=== PATIENT | female | born 1950 | race Caucasian/White ===

== ENCOUNTER → 2017-07-16 13:17 | Outpatient (CLI) | payer MEDICARE, OTHER, SELFPAY ==
--- NOTE | 2017-07-16 13:20 | RAD_ITS ---
STUDY: SWALLOWING STUDY REASON FOR EXAM: Female, 67 years old. Dysphasia. Parkinson's disease. TECHNIQUE: The examination was performed with Speech Pathology in attendance. Under fluoroscopic observation, the patient ingested thin barium, thick barium, barium pudding, and barium coated cracker. FLUOROSCOPY TIME: 2:14 minutes/seconds. 1831 spot images were obtained. RADIOLOGIST INVOLVEMENT: Radiologist was present and providing direct supervision. COMPARISON: None. FINDINGS: The following was observed during swallowing of the various mixtures of barium: Thin Barium: There was no evidence of aspiration or laryngeal penetration. Barium Pudding: There was no evidence of aspiration or laryngeal penetration. Barium Coated Cracker: There was no evidence of aspiration or laryngeal penetration. RAD/Swallowing Function w/Video IMPRESSION: Normal tailored barium swallow study. No evidence of increased risk for aspiration. The swallow study findings were discussed with the patient by the speech pathologist at the conclusion of the examination. Please see speech pathology report for more information and recommendations. Electronically Signed: Sukhdeep Perez MD at 14:40 EST Tel [phone], Service support ,
--- NOTE | 2017-07-16 13:30 | SP.MBSS_ITS ---
PRIMARY / SECONDARY DIAGNOSIS: dysphagia (R13.12) REFERRING PHYSICIAN: Dr. Ronak Mcguire MD CURRENT DIET: regular textures, thin liquids DENTITION: WFL Missing Teeth MENTAL STATUS: mild RESPIRATORY STATUS: O2 via room air PREVIOUS MODIFIED BARIUM SWALLOW STUDY: none REASON FOR REFERRAL: Patient is a 67 year old female referred for a modified barium swallow (MBS) study to objectively assess the Patients oropharyngeal swallow function under fluoroscopy secondary to the diagnosis of Parkinsons disease. Patient known to this clinician from prior [facility] and acute care admissions, currently receiving skilled speech-language intervention as outpatient at [facility]. Patient reporting reported coughing on thin liquids, reported numbness intermittently in cheeks. 06/03/2017 MRI revealed no MRI evidence of acute or subacute ischemic infarct, no MRI evidence of intracranial mass or acute intracranial abnormality; interval cystic change of the previous acute ischemic infarct in the left pontine tegmentum when compared to 03/01/2017. MEDICAL HISTORY: Parkinson's disease with dementia, left pontine stroke (February 2017), gastroesophageal reflux disease, hypertension, hyperlipidemia STUDY FINDINGS: Patient participated in a Modified Barium Swallow (MBS) study on 07/16/2017. Dr. Perez was the radiologist present for this evaluation. This study was recorded in the lateral view and images were sent to PACs for storage. The following consistencies were presented to this patient for analysis of oropharyngeal swallow function: thin liquids, pudding, and a regular textured, [place]ala [place] cookie. Results of the MBS are as follows: PENETRATION / ASPIRATION SCALE (MAURICIO): 1 = does not enter airway 2 = enters airway/above vocal folds/ejected 3 = enters airway/above vocal folds/not ejected 4 = enters airway/contacts vocal folds/ejected 5 = enters airway/contacts vocal folds/not ejected 6 = enters airway/below vocal folds/ejected 7 = enters airway/below vocal folds/not ejected despite effort 8 = enters airway/below vocal folds/no effort PENETRATION / ASPIRATION SCALE (SCORE): Thin liquid - 5 mL tsp.: 1 Thin liquids via cup (single sip): 1 Thin liquids via cup (single sip): 1 Thin liquids via cup (single sip): 1 Thin liquids via cup (sequential swallows): 1 Thin liquids via straw (single sip): 1 Pudding via spoon: 1 Regular textured cookie: 1 Thin liquids via straw (sequential swallows): 1 IMPRESSION: DIAGNOSIS: mild to moderate oropharyngeal dysphagia (R13.12) ORAL PHASE CHARACTERIZED BY: LABIAL SEAL: no labial escape TONGUE CONTROL DURING BOLUS MANIPULATION: intermittent posterior escape of less than half of bolus and escape to lateral buccal cavity/floor of mouth BOLUS PREPARATION / MASTICATION: slow prolonged chewing/mashing with complete recollection; noted piecemeal deglutition with purees and solids BOLUS TRANSPORT / LINGUAL MOTION: repetitive/disorganized tongue motion with more viscous textures; slowed tongue motion with intermittent mild (2-3 second) delayed initiation of tongue motion with thin liquids, more prominent with pudding and regular textures (10-13 seconds) ORAL RESIDUE: residue collection on oral structures during pudding and regular textures PHARYNGEAL PHASE CHARACTERIZED BY: INITIATION OF PHARYNGEAL SWALLOW: bolus head in valleculae at first hyoid excursion SOFT PALATE ELEVATION: intermittent trace column of air between soft palate and pharyngeal wall with smaller bolus LARYNGEAL ELEVATION: intermittent partial superior movement of thyroid cartilage/partial approximation of arytenoids cartilage to epiglottic petiole ANTERIOR HYOID EXCURSION: complete anterior movement EPIGLOTTIC MOVEMENT: complete epiglottic inversion LARYNGEAL VESTIBULE CLOSURE AT HEIGHT OF SWALLOW: complete laryngeal vestibule closure with no air/contrast in laryngeal vestibule PHARYNGEAL STRIPPING WAVE: pharyngeal stripping wave present / complete PHARYNGOESOPHAGEAL SEGMENT OPENING: complete distension and complete duration with no obstruction of flow TONGUE BASE RETRACTION: narrow column of contrast between tongue base and posterior pharyngeal wall PHARYNGEAL RESIDUE: collection of residue within or on pharyngeal structures ( valleculae) with more viscous textures ESOPHAGEAL PHASE CHARACTERIZED BY: ESOPHAGEAL BOLUS CLEARANCE IN THE UPRIGHT POSITION: very mild superior esophageal retention with solids; overall insignificant DIET TEXTURE RECOMMENDATIONS: Will recommend a regular-soft textured, thin liquid diet. COMPENSATORY STRATEGIES RECOMMENDED: Forward / anterior lean, reduced bolus volume, straws with liquids, intermittent liquid chaser, seated upright at 90 degrees during PO intake, remain upright for 30-60 minutes post meal (GERD precaution) INTERPRETATION OF RESULTS: Patient presents with mild to moderate oropharyngeal dysphagia (R13.12) secondary to the diagnosis of Parkinsons disease. Oral phase marked by suboptimal lingual control with noted lingual festinations / lingual rolling pattern typically identified in individuals with Parkinsons disease; oral phase swallow onset delay (2-3 seconds in length with liquids, upwards of 13 seconds with pudding); and mild to moderate mastication inefficiency. Pharyngeal phase marked by delayed pharyngeal swallow onset timing (mild); poor pharyngeal motility / pharyngeal dysmotility (mild to moderate); and velopharyngeal insufficiency soft palate elevation without nasoregurgitation. All deficits adequately compensated with bolus volume adjustments and positioning. RECOMMENDATIONS: Patient may benefit from continued skilled speech-language intervention targeting continued diet texture management; training and implementation of recommended compensatory strategies, though would likely benefit more form intervention targeting hypokinetic dysarthria due to the relative preserved swallow function demonstrated under fluoroscopy. May further consider training and implementation of oropharyngeal strengthening exercises to facilitate improved oropharyngeal strength and coordination, though significant improvement is not likely due to the progressive nature of the Patients diagnosis. ADDITIONAL COMMENTS/RECOMMENDATIONS: Results and recommendations were discussed with the Patient immediately following MBS completion, with the Patient verbalizing understanding and agreement with all recommendations and education provided. IMAGE COUNT: [id number] G-CODES: SWALLOWING [id number] Current Status: CI SWALLOWING [id number] Goal Status: CI SWALLOWING [id number] Discharge Status: CI
== END ==
PROVIDERS: Family Provider Family Medicine; PCP Family Medicine; Visit Provider Family Medicine
DX: Z86.73 Personal history of transient ischemic attack (TIA), and cerebral infarction without residual deficits (principal)
CPT/HCPCS: 74230; 92611; 97110; G8996; G8997; G8998

== ENCOUNTER 2017-07-22 13:22 | Emergency (ER) | payer MEDICARE, OTHER, SELFPAY ==
[2017-07-22 13:23] VITALS: BP 151/85; PULSE 81; RESP 19; TEMP 36.6; O2SAT 99; BMI 26.6
[2017-07-22 13:33] VITALS: BP 164/89; PULSE 83; RESP 31; O2SAT 98
--- NOTE | 2017-07-22 13:44 | CT_ITS ---
STUDY: CT BRAIN WITHOUT CONTRAST REASON FOR EXAM: Female, 67 years old. Facial droop. History of Parkinson's disease. RADIATION DOSAGE (If Supplied By Facility): CTDIvol = ( 44.99 ) mGy, DLP = ( 779.24 ) mGycm TECHNIQUE: Transaxial CT imaging of the brain was performed without administration of intravenous contrast material. Individualized dose optimization techniques were used for this CT. COMPARISON: Comparison is made with prior study dated May 31, 2017. FINDINGS: Normal soft tissue structures. Normal calvarium. Normal size ventricles and extra-axial spaces for the patient's age. Normal white matter tracts of the cerebral hemispheres. Findings there is a very tiny lacunar infarct in the left basal ganglia. Stable old left pontine lacunar infarct. Normal cerebellum. There is no intracranial hemorrhage. There are no findings of an acute ischemic infarction. Normal visualized paranasal sinuses. CT/Brain/Head without Contrast IMPRESSION: No acute abnormality is seen. Electronically Signed: Sukhdeep Perez MD at 14:13 EST Tel [phone], Service support ,
--- NOTE | 2017-07-22 13:44 | EKG12_ITS ---
Test Reason : NEURO S/SX Blood Pressure : / mmHG Vent. Rate : 086 BPM Atrial Rate : 086 BPM P-R Int : 158 ms QRS Dur : 090 ms QT Int : 360 ms P-R-T Axes : 068 -24 029 degrees QTc Int : 430 ms Normal sinus rhythm Normal ECG Confirmed by JAMESON SOW, PO ([id number]), production editor CORA PATEL ([id number]) on 07/23/2017 2:28:22 PM Referred By: YAAKOV/CHALINO Confirmed By:PO BARBA MD
[2017-07-22 13:46] LABS: Bedside Glucose 86 mg/dL (70-110)
--- NOTE | 2017-07-22 13:56 | RAD_ITS ---
STUDY: X-RAY CHEST REASON FOR EXAM: Female, 67 years old. Cough. TECHNIQUE: Single AP portable view of the chest. COMPARISON: Comparison is made with prior examination dated May 31, 2017. FINDINGS: EKG electrodes are seen. The lungs are clear and expanded. There is no demonstrated pleural abnormality. There is mild cardiac enlargement. Normal mediastinum and dickson. Normal visualized pulmonary arteries. There is atherosclerotic calcification of the aortic arch with tortuosity. Normal visualized thoracic spine. Normal visualized ribs, clavicles, and shoulders. There is no demonstrated abnormality of the visualized soft tissue structures of the upper abdomen. RAD/Chest 1 View IMPRESSION: Mild cardiomegaly. No acute abnormality is seen. Electronically Signed: Sukhdeep Perez MD at 14:19 EST Tel [phone], Service support ,
[2017-07-22 14:00] LABS: Absolute Lymphocyte Count 2.93 X10^3/ul (0.83-4.51); Absolute Neutrophil Count 6.6 X10^3/uL (2.0-7.7); Basophil# 0.03 X10^3/uL; Basophil% 0.3 % (0-1); Eosinophil# 0.29 X10^3/uL; Eosinophils% 2.7 % (0-5); Hematocrit 37.2 % (37-47); Hemoglobin 12.1 g/dl (12.0-15.0); Lymphocyte # 2.93 X10^3/ul (4.0); Lymphocyte % 27.5 % (19-41); Mean Corp Hgb Conc 32.5 g/gl (32-36); Mean Corpuscular Hgb 32.2 pg (27.0-32.0); Mean Corpuscular Volume 98.9 fL (81-99); Mean Platelet Vol. 12.4 fl (6.2-12.0); Monocyte# 0.78 X10^3/uL; Monocyte% 7.3 % (0-10); Neutrophil # 6.62 X10^3/uL (2.7-7.7); POSITIVE COUNT NO; POSITIVE DIFFERENTIAL NO; POSITIVE MORPHOLOGY NO; Platelet Count 243 K/mm3 (150-450); RBC Distribution Width CV 14.6 % (11.6-14.6); RBC Distribution Width SD 52.5 fl (35.1-43.9); Red Blood Count 3.76 M/mm3 (4.2-5.4); White Blood Count 10.7 K/mm3 (4.4-11.0)
[2017-07-22 14:10] LABS: International Normalized Ratio 1.1; Prothrombin Time (Protime)PT. 13.5 SECONDS (11.7-14.9)
[2017-07-22 14:11] LABS: Anion Gap 6 (5-15); BUN 22 mg/dL (7-18); BUN/Creat Ratio 21.6 RATIO (10-20); Calcium,Total 8.9 mg/dL (8.5-10.1); Chloride 106 mmol/L (98-107); Creatinine, Serum 1.02 mg/dL (0.55-1.02); EST Glomerular Filtration Rate 57 mL/min (>60); Est Glom Filt Rate - Afr Amer 69 mL/min (>60); Estimated Creatinine Clearance 49.42 ml/min; Glucose 83 mg/dL (74-106); Partial Thromboplast Time 23.3 Seconds (24.1-36.2); Sodium Level 141 mmol/L (136-145)
--- NOTE | 2017-07-22 14:15 | MRI_ITS ---
STUDY: MRI BRAIN WITHOUT CONTRAST REASON FOR EXAM: Female, 67 years old. Facial droop, history of Parkinson's disease TECHNIQUE: Standardized multiplanar fat and water weighted pulse sequences were obtained. COMPARISON: CT of the brain on July 22, 2017 MRI of the brain on June 01, 2017 FINDINGS: Mild atrophy and periventricular white matter ischemic changes. No mass effect or restricted diffusion.. Tiny old lacunar infarcts in the anterior limb of the left internal capsule. Chronic ischemic changes within the gilson . Normal bilateral basal ganglia. Normal thalami. There is no extra-axial fluid accumulation. Normal flow voids within the major intracranial circulation suggesting patency by spin echo criteria. Normal sella turcica, pituitary gland, infundibular stalk, optic chiasm and hypothalamus. Normal tectal plate and pineal gland. Normal midbrain, and medulla. Normal cerebellum. Normal basal cisterns. Normal bilateral temporal bones. Normal bilateral internal auditory canals. There are postsurgical changes of the orbits. Normal visualized paranasal sinuses. Normal calvarium and skull base. Normal visualized soft tissue structures. Normal visualized upper cervical spine. No significant change since prior study MRI/Brain without Contrast IMPRESSION: Mild atrophy and periventricular white matter ischemic changes. No evidence for acute infarct Tiny old left lacunar infarcts and chronic ischemic changes within the gilson Electronically Signed: Conor Whitley MD at 16:12 EST , Service support ,
[2017-07-22 14:21] VITALS: BP 129/80; PULSE 84; RESP 22; O2SAT 97
[2017-07-22 16:00] VITALS: PULSE 78; RESP 18; O2SAT 97
--- NOTE | 2017-07-22 16:59 | ED.VISSUMM ---
- ER Visit Summary Date of Service: 07/22/17 Chief Complaint: Possible left facial droop History of Present Illness: The patient is a 67 F with a history of stroke in February. She has been admitted twice since that time for recurrent symptoms and had repeat MRIs for stroke and stroke was ruled out. Today while at therapy the therapist noted that she appeared to possibly have some mild left facial droop. In speaking to the he noted that it seemed like it was more involving her left eye and that her left eye was not as far open as it normally is. The patient also complains of some decreased sensation on the left face. No weakness or paresthesias of the extremities. No aphasia or slurred speech. Caregiver notes that she has had some generalized weakness but this is been chronic and is at baseline and is what she is receiving therapy for. No recent illness otherwise. No vomiting or diarrhea. No headache. Patient denies any pain. Physical Examination: Initial blood pressure 151/85 vitals otherwise unremarkable Moist mucous membranes Heart regular rate and rhythm Lungs are clear Abdomen soft Alert and oriented possibly some mild left facial droop and some left eyelid droop no asymmetry of forehead creases able to close the eyes tightly patient reported to nursing some decreased sensation on the left face but denied this on my examination normal strength and sensation of the upper and lower extremities Test Results: EKG shows normal sinus rhythm at a rate of 86. Laboratory studies unremarkable. CT the head shows no acute abnormality. MRI of the brain shows no acute infarct. Emergency Department Course and Treatment: The patient has had 2 recent admits after her stroke for repeat stroke evaluation with negative MRI I felt it would be appropriate to obtain MRI here to rule out stroke rather than re-admit the patient. Initially given that she had some drooping of the left eyelid it was thought this may be due to Nichole's palsy however on reevaluation her symptoms are completely resolved. Therefore it is unlikely that this is Nichole's palsy. I did speak to neurology on-call. Given that only the face was involved he also felt that this was unlikely to be a TIA. Regardless the patient has had multiple recent workups for stroke and has had imaging of her vessels which showed no stenosis as well as a recent echocardiogram and she is in sinus rhythm. Therefore we did feel that there would be no benefit to hospitalization at this point and it would be appropriate for the patient to follow-up as an outpatient. Family understands to return for new or worsening symptoms. Patient discharged. Treatment Plan: [] Disposition: Discharge Impression: Transient facial weakness This note was generated with Quik.io dictation software. It may contain incorrect words, spelling, and punctuation that were not noted in review of the chart prior to signing ED Disposition - Plan for ED Patient: Chief Complaint: Neuro S/Sx Referrals: Ronak Mcguire MD [Primary Care Provider] -
--- NOTE | 2017-07-22 17:03 | ED.DEP ---
ED Disposition - Plan for ED Patient: Chief Complaint: Neuro S/Sx Referrals: Ronak Mcguire MD [Primary Care Provider] - Additional Instructions: Follow up with your primary care physician and neurologist. It is unclear what caused your symptoms today however you have not had a new stroke. Return for new or worsening symptoms.
[2017-07-22 17:21] VITALS: BP 159/79; PULSE 74; RESP 18; O2SAT 100
== END 2017-07-22 17:21 | disposition home or self-care (01) ==
PROVIDERS: Emergency Provider Emergency Medicine; Family Provider Family Medicine; PCP Family Medicine
DX: R29.810 Facial weakness (principal); I10 Essential (primary) hypertension; E78.00 Pure hypercholesterolemia, unspecified; G20 Parkinson's disease; Z86.73 Personal history of transient ischemic attack (TIA), and cerebral infarction without residual deficits
CPT/HCPCS: 70450; 70551; 71045; 80048; 82962; 84484; 85025; 85610; 85730; 93005; 97110; 97535; 99284; A4216

== ENCOUNTER 2017-08-06 15:00 | Outpatient (RCR) | payer MEDICARE, OTHER, SELFPAY ==
--- NOTE | 2017-06-24 10:03 | HP.PTEVAL_ITS ---
Patient's Visit Information Therese Salazar is a 67 year old F referred to Physical Therapy by Ronak WATSON with a diagnosis of Parkinsons. Date of Evaluation: 06/24/17 Physical Therapist: Manuel Kearns PT, - Visit Plan Frequency: 2x /Week Duration: 4-6 Weeks Plan: B LE strengthening, balance and proprio, gait training, nustep, and HEP - Subjective Subjective: Pt has had an unsteady gait for several years. Pt is a poor historian as most of her history is given by her aid. Pt has a Hx of falls, the last one occuring about one month ago. Pt lives at home with her . Pt is given help throughout the day by a home health aid, and then by her in the evenings. Pt ambulates with the use of a walker. Pt notes she has stairs at home, but doesnt have to use them on a daily basis. Pt reports she has been Dx' d with Parkinsons disease, but really questions that Dx. Pt reports she was here 2 mos ago, but chose not to come back because she was busy with holiday festivities. Pt reports she feels weak at this time. Pt denies being in any pain at this time. - Objective Neuro: B LE sensation is WNL to light touch. MMT: B LE's are rated at 4+/5 throughout. Gait: Pt was able to ambulate approximately 300 feet with CGAx1 and WW until having to stop secondary to fatigue. Pt displayed 3 episodes of near LOB, but recovered with use of WW. - Goals Goal 1:: Increase B LE strength x 1 grade to aid with IADL's Goal Time Frame: 4-6 Weeks Goal 2:: Pt will be able to ambulate greater than 400 feet with no LOB and WW to promote community ambulation Goal Time Frame: 4-6 Weeks Goal 3:: I with HEP Goal Time Frame: 4-6 Weeks - Rehabilitation Potential Physical Therapy Diagnosis: B LE weakness, decreased balance, and unsteady gait pattern secondary to parkinsons disease Rehabilitation Potential: Good - Anticipated Interventions Patient/Client Instruction: Educate patient on: Condition, Plan of Care For the Purpose of:: To improve self management Therapeutic Exercise to Include: Strength training, Endurance training, Balance training, Gait and locomotor training, Active ROM For the Purpose of:: To improve muscle performance and motor function, To improve ability to perform ADL's, To improve ability of physical actions for home/community/work/leisure Thank you for the opportunity to evaluate your patient. For Medicare and Medicare HMO plans, please review the plan of care and approve it. It will need to be FAXED BACK to us at [phone] for Medicare purposes. Please let me know if there are questions or concerns regarding this plan of care. Physician Signature: Date:
--- NOTE | 2017-06-24 12:04 | HP.SP.AD ---
History - History Date of Eval: 06/24/17 Date of Onset of Diagnosis: Parkinsons 1998, CVA feb and Apr 2017 Previous speech therapy: Yes Results: Marguerite Salazar 6-7 weeks with speech addressed but unsure of what goals. Other Relevant Medical History/Diagnoses/Surgery: Pnuemonia( unknown how long ago) Medications related to this diagnosis: Stalevo x6 daily and exelonxx2 daily cymblata, pepcid, surepin. Smoking Status: Never smoker Hx Smoking: No Hx Tobacco Use: No - Pain Is pain an issue with your current prescribed condition?: No - Personal Occupation: Retired Visual Assistive Devices: Glasses Patients Living Arrangements: With Significant Other Patient Allergies - Allergies Allergies sulfamethoxazole [From Bactrim] Allergy (Verified 05/31/17 18:09) Hives trimethoprim [From Bactrim] Allergy (Verified 05/31/17 18:09) Hives Subjective Oral Motor - Comments Comments: Reports of coughing on thin liquids. Reported numbness intermittently in cheeks Objective Oral Motor - Oral Status Dentition: Missing Teeth - Labial Observation at Rest: WNL Closure: WNL Pucker: Mild Retraction: Mild Alternating Pucker/Retraction: Mild Involuntary Movement noted: No - Labial Comments Comments: Noted overall reduced movements which is common with Parkinsons. - Respiratory Status Respiratory Status: Room Air CLQT - CLQT CLQT Administered: Yes CLQT: Cognitive Linguistic Quick Test (CLQT) is a criterion - referenced assessment designed for adults between the ages of 18 and 89 with known or suspected neurological dysfuntions. The CLQT is to assess strength and weaknesses in five cognitive domains. Severity ratings are within normal limits, mild, moderate, severe deficits. The subtests are as follows: Date: 06/24/17 - Language Language: WNL - CLQT Comments CLQT Will complete the CLQT with goals added in the next few sessions. Objective Dysarthira/Motor - Speech Intelligibility Phonemes: Moderate Single Words: Mild - Volume Volume: Severe Loudness: [place] loudness - Consistency w/Multiple Repetitions Words: Moderate Phrases: Moderate - Observation Observation of Apraxia of Speech: No Oral Groping for Placement: No Inconsistent Errors: No - Awareness/Strategy Use Limited to no awareness of motor speech impairment: Yes Subjective Voice - Intubation Was the Client intubated: No - Other Product Usage Do you take Vitamin C Supplements (if yes, list amt (mg)/day: Yes Subjective Clinical Impression - Adult Clinical Impression Vocal fatigue: a 'tired' voice or feeling of excessive effort to phonate: Present - Non-Phonatory Behaviors/Respiration Reduced loudness or vocal weakness: Present Limited breath support for speech: Present Objective Voice - Date of Diagnosis Date of diagnosis: 1998 Previous Speech Therapy (If yes, describe): No - Medications Familiar with on/off effect: No - Implantation Deep brain implantation (If yes, answer next question): No - Objective data Objective Data: Objective data: Sound pressure level (SPL acoustic correlation of vocal loudness) was measured with a sound level meter at a distance of 40 cm from the patient's mouth. Average conversational loudness is 70-80 dB and sustained phonation duration is 15 to 20 seconds for a typical adult. 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 Also recommend MBS to determine swallowing deficits. - Recommendations MBS: Yes Treatment Warranted: Yes - Frequency Frequency: 2x /Week Duration: 4 Weeks Visits in this POC: 8 - Prognosis Prognosis: Fair - Goals that are Established: Determination:: Goals will be added/modified as deemed necessary and appropriate. Therapy will be discontinued when results of re-evaluation indicate therapy is no longer needed or lack of progress has been documented. - Goal #1-5 Goal #1: Patient will increase vocal loudness to reach a target sound pressure level of 65 dB APPLICATION ANALYST with 1 cue during reading at the word and sentence level, which will help increase vocal respiratory support for functional communication. Goal #2: Patient will increase vocal loudness to reach a target sound pressure level of 65 dB APPLICATION ANALYST with 1 cue during conversation for functional communication. Goal #3: Patient will complete problem solving for safety awareness at home on 4/5 trials on 3 consecutive sessions. Completion of the CLQT will be addressed. Goal #4: Modified barium swallow study recommended if physician is in agreement. Education - Patient has Indicated that the Following Identified Educational Needs: None The Patient has indicated that they have no educational or learning abilities that may effect their care.: Yes - Patient Instruction Patient Education: Diagnosis, Treatment Plan, Goals Person Taught: Patient, Primary Caregiver Teaching Method: Discussion Response to teaching: Verbalize understanding
--- NOTE | 2017-06-24 13:33 | HP.OTEVAL ---
Patient's Visit Information Therese Salazar is a 67 year old F, referred to Occupational Therapy by DR.JMILLE Meir, with a diagnosis of Parkinson's. Date of Evaluation: 06/24/17 Occupational Therapist: Stephanie Morales - Subjective Subjective: Pt seen for initial occupational therapy evaluation for decreased upper extremity strength, decreased safety awareness with BADLs and education on DME/AE to increase independence and safety. [place] [facility] [place] and has aide 5x/wk from 7:30am to 5:00pm to assist w/ BADL's and IADL's. Pt has had frequent falls at home and uses a rollator to ambulate around house as well as a w/c that she uses occassionaly in home and primarily in community. Pt had CVA in Feb 2017 and April 2017. She went to [facility] mid April through mid May to stay in there skilled unit for therapy services. She requires assist with all BADL's/IADL's at home. - Objective Objective/Observation: Pt demo decreased generalized BUE strength, decreased balance for BADL's, decreased safety awareness and use of DME/AE to assist her w/ BADLs around the house. - ROM ROM Comments: BUE ROM WFL - Strength Shoulder: R 3+/5, L 3+/5 Elbow: R 3+/5, L 3+/5 Rib Cutter: R 18#, L 23# Tripod Pinch: attempted, pt unable to pinch correctly after demonstration and cues Strength Comments: Generalized BUE strength 3+/5, decreased key holder strength R UE. - Edema Other: No edema noted - Sensation Sensation Comments: Pt states no numbness/tingling BUE, pt does state numbness R side of face that has been that way for awhile now. She states it switches between L side face to R side face. - Movement Tremors: light tremors noted 2' Parkinson's Movement Comments: Pt's aide stated she has difficulty eating or drinking from cups with her tremors. - Visual/Perceptual Skills Comments: Pt states no vision deficits - Cognitive Skills Follows Directions: Yes - extra time and cues needed Oriented to (Check all that apply): Place - Transfers Transfers: MIN A for sit to stand transfers. Verbal and visual cues needed for safety with transfers. Pt did not push up from chair or reach back for chair with transfers. Pt likes to sit in wooden chair with no arm rests at home and has difficulty getting in and out of chair. - DASH-Disabilities of Arm, Shoulder& Hand DASH Sum: 103 - Goals Goal:: Pt will progress w/ generalized BUE strength 4/5 to assist with functional transfers SBA level. Goal:: Pt will progress w/ self feeding tasks using DME/AE as needed set-up level with use of compensatory strategies. Goal:: Pt will progress w/ functional transfers for BADL's SBA level using proper hand placement with good safety awareness. Goal:: Pt will progress w/ R UE key holder strength by 10# to assist w/ BADL's by d/c. Goal:: Pt will progress w/ UB/LB dressing tasks SBA level using DME/AE as needed with good safety awareness by d/c. Goal:: Pt/aide will be educated on DME/AE to assist w/ BADL's and increase safety awareness around the house with good understanding and demo 100%x. Goal:: Pt/aide will be educated on BUE HEP to maintain BUE strength for functional transfers and BADLs w/ good understanding and demo 100%x. - Rehabilitation General Assessment: Pt lives w/ spouse in [place] home with 3 steps to enter 1 handrail. Pt has home health aide assist her 5x/wk from 7:30am to 5:00pm with BADLs/IADLs. Pt requires assist with all BADL's at this time. AMB with rollator and has gait belt secondary to frequent falls in the house and decreased safety. Pt is right hand dominent. Pt has tub/shower with extended tub bench, hand held shower and comfort height commode. Pt has scoop plate but does not use at this time. Pt has difficulty putting socks/shoes on when she bends over for long amount of time states she becomes dizzy and stated she sometimes loses her balance. Pt demo decreased independence with BADL's and use of DME/AE for BADL's. Pt demo decreased safety awareness with BADL's and has frequent falls at home. Pt demonstrates decreased BUE strength and R UE key holder strength all indicating a need for occupational therapy services to increase BUE strength and independence wtih BADL's with increased safety to increase her quality of life. Rehabilitation Potential: Good - Anticipated Interventions Anticipated Interventions: Strengthening, Modalities, Dynamic Sitting Balance, Fine Motor Coord/Arnulfo, ADL Training, Education re assistive Equipment, Caregiver Training, Home Program - Visit Plan Frequency: 2x /Week Duration: 4 Weeks General Plan: increase independence with BADL's, increase safety and use of DME/AE with BADL's, increase BUE strength and R UE key holder strength. Educate on BUE HEP. TEXT: Thank you for the opportunity to evaluate your patient. For Medicare and Medicare HMO plans, please review the plan of care and approve it. It will need to be FAXED BACK to us at [phone] for Medicare purposes. Please let me know if there are questions or concerns regarding this plan of care. Physician Signature: Date:
--- NOTE | 2017-07-29 17:16 | HP.OTDCSUM ---
HP - OT D/C Summary It has been my pleasure to treat ALYSSA IVAN under orders from Ronak Mcguire, for the diagnosis of Parkinson's for a total of 9 visit(s). Please see the following information for a summary of their discharge status. - Objective Objective/Function: increase BUE strength and decrease risk of falling at home with increased safety and indep with BADLs at home using DME/AE as needed. - Goals Patient Goals: Regain Strength, Be More Independent in ADLS, Improve Sitting Balance, Improve Transfer Skills, Resume Former Household Responsibilities (Cooking,Cleaning,Yard, etc.), Resume Hobbies Goal:: Pt will progress w/ generalized BUE strength 4/5 to assist with functional transfers SBA level. - Pt demo 4/5 BUE strength. Goal Met Goal:: Pt will progress w/ self feeding tasks using DME/AE as needed set-up level with use of compensatory strategies. - Eduacted on DME/AE for self feeding, declines to use. Goal:: Pt will progress w/ functional transfers for BADL's SBA level using proper hand placement with good safety awareness. -SBA for transfers with occassional cues for proper hand placement. Goal:: Pt will progress w/ R UE felt hat mellowing machine operator strength by 10# to assist w/ BADL's by d/c. -R felt hat mellowing machine operator strength 25#, L felt hat mellowing machine operator strength 20# Goal:: Pt will progress w/ UB/LB dressing tasks SBA level using DME/AE as needed with good safety awareness by d/c. Pt states able to complete dressing on her own other than socks/shoes. Educatedon DME/AE to assist w/ dressing, declines to use DME/AE. Goal:: Pt/aide will be educated on DME/AE to assist w/ BADL's and increase safety awareness around the house with good understanding and demo 100%x. -Educated on DME/AE to assist w/ ADLs. Nsg aide Goal:: Pt/aide will be educated on BUE HEP to maintain BUE strength for functional transfers and BADLs w/ good understanding and demo 100%x. Educated on BUE HEP and theraputty exercises to complete at home. - Plan Plan: d/c from OT this date - D/C Information Discharge Comments: Pt has progressed with BUE strength 4+/5 and demo felt hat mellowing machine operator strength R UE 25# and L UE 20#. Educated on DME/AE to increase safety and independence at home. Pt declines to use DME/AE at home. Educated on BUE HEP to maintain BUE strength and theraputty exercises for felt hat mellowing machine operator strength. Pt demo good understanding. Pt and nsg aide educated on safety awareness and precautions with BADLs and functional transfers. If there are questions or concerns regarding this patient's occupational therapy, please fell free to call me at [phone]. Thank you for the referral of this patient. Sincerely, Stephanie Morales
--- NOTE | 2017-08-12 09:11 | HP.SP.DC_ITS ---
ST Discharge Summary - Discharged: Discharge: Therese Salazar is discharged from [facility] as of July 30, 2017 as she had either met her goals or reached a plateau. She was evaluated on June 24, 2017 and received 7 treatment sessions following her evaluation. Her main goals were to increase vocal loudness at both the word/ sentence level and also in conversation. She met the goal to increase vocal loudness to greater than 65 dB at the word/sentence level with an average of 72.5 dB with only one cue. Her next goal addressed loudness at the conversational level with the target being 65dB in conversation with only one cue. Her average for the last three sessions was 63.6. She has plateaued at this level for several weeks. Her final goal was to complete simple problem solving with 80% for safety awareness. During the sessions she was able to problem solve simple tasks, for example what to do if she falls. She was able to do this with 80%. She has a caregiver during the day and her is with her in the evenings/weekends. At this time she is discharged from speech therapy. A copy of her discharge will be sent to her referring physician.
--- NOTE | 2017-09-22 12:02 | HP.PT.NRP ---
HP - Discharge Summary (1) - Patient Information ALYSSA IVAN was seen in my office for initial evaluation on 06/24/17. The following Plan of Care was established for this patient: Initial Frequency: 2x /Week Initial Duration: 4-6 Weeks - Anticipated Interventions Patient/Client Instruction: Educate patient on: Condition, Plan of Care For the Purpose of:: To improve self management Therapeutic Exercise to Include: Strength training, Endurance training, Balance training, Gait and locomotor training, Active ROM For the Purpose of:: To improve muscle performance and motor function, To improve ability to perform ADL's, To improve ability of physical actions for home/community/work/leisure This patient was last seen in our office . Pertinent comments regarding their Physical therapy will appear below: Pt was last scheduled for PT on the date of 08/12/17. Pt cancelled that appointment and has not returned through todays date. Pt is discontinued at this time. At this point I will be discontinuing this patient from physical therapy. I would be happy to see this patient again in the future if found appropriate by the physician. Thank you! Manuel Kearns, PT,
== END 2017-08-06 19:00 | disposition home or self-care (01) ==
LOC: PT 15:00
PROVIDERS: Family Provider Family Medicine; PCP Family Medicine; Visit Provider Family Medicine
DX: Z86.73 Personal history of transient ischemic attack (TIA), and cerebral infarction without residual deficits (principal); G20 Parkinson's disease; R47.1 Dysarthria and anarthria
CPT/HCPCS: 74230; 92507; 92524; 92611; 97110; 97162; 97165; 97530; 97535; G9172

== ENCOUNTER 2017-09-17 12:15 | Emergency (ER) | payer MEDICARE, OTHER, SELFPAY ==
[2017-09-17 12:16] VITALS: BP 115/46; PULSE 81; RESP 18; TEMP 36.1; O2SAT 98; BMI 26.1
--- NOTE | 2017-09-17 12:42 | EKG12_ITS ---
Test Reason : FALL Blood Pressure : / mmHG Vent. Rate : 066 BPM Atrial Rate : 066 BPM P-R Int : 168 ms QRS Dur : 100 ms QT Int : 410 ms P-R-T Axes : 044 -19 015 degrees QTc Int : 429 ms Normal sinus rhythm Normal ECG Confirmed by PO BARBA MD ([id number]), food editor CORA PATEL ([id number] on 09/19/2017 1:01:52 PM Referred By: ISA Confirmed By:PO BARBA MD
--- NOTE | 2017-09-17 12:42 | RAD_ITS ---
STUDY: X-RAY CHEST REASON FOR EXAM: Female, 67 years old. Weakness status post fall. TECHNIQUE: Single portable frontal chest. COMPARISON: July 22, 2017. FINDINGS: The lungs are clear and expanded. There is no pleural effusion. There is persistent elevation the right hemidiaphragm of indeterminate etiology and unclear clinical concern. There is no pneumothorax. There is moderate cardiac enlargement. Normal mediastinum and dickson. Normal visualized pulmonary arteries. There is atherosclerotic calcification of the aortic arch with tortuosity. There are diffuse degenerative changes of the visualized thoracic spine. There is no acute osseous abnormality. There is no demonstrated abnormality of the visualized soft tissue structures of the upper abdomen. RAD/Chest 1 View (Portable) IMPRESSION: Stable exam. No evident acute cardiopulmonary disease. Persistent cardiomegaly. Atherosclerotic peripheral vascular disease. Electronically Signed: Jacinto Luke MD at 14:48 EDT , Service support ,
--- NOTE | 2017-09-17 12:42 | CT_ITS ---
STUDY: CT BRAIN WITHOUT CONTRAST REASON FOR EXAM: Female, 67 years old. Status post fall with head trauma. Parkinson's disease. RADIATION DOSAGE (If Supplied By Facility): CTDIvol = ( 44.99 ) mGy, DLP = ( 779.24 ) mGycm TECHNIQUE: Transaxial CT imaging of the brain was performed without administration of intravenous contrast material. Individualized dose optimization techniques were used for this CT. COMPARISON: July 22, 2017. FINDINGS: Normal soft tissue structures. Normal calvarium. Normal size ventricles and extra-axial spaces for the patient's age. Normal white matter tracts of the cerebral hemispheres. There is a tiny, subtle chronic lacunar infarct within the left basal ganglia. There is a stable chronic left pontine lacunar infarct. Normal cerebellum. There is no intracranial hemorrhage. There is no large vessel territory ischemia/edema. Normal visualized paranasal sinuses. CT/Brain/Head without Contrast IMPRESSION: Stable exam. There is no CT evident acute intercranial pathology. Subtle chronic or chronic infarct within the left basal ganglia. Stable chronic left pontine lacunar infarct. Electronically Signed: Jacinto Luke MD at 14:45 EDT , Service support ,
[2017-09-17 13:00] LABS: Absolute Lymphocyte Count 2.55 X10^3/ul (0.83-4.51); Absolute Neutrophil Count 6.8 X10^3/uL (2.0-7.7); Basophil# 0.04 X10^3/uL; Basophil% 0.4 % (0-1); Eosinophil# 0.28 X10^3/uL; Eosinophils% 2.7 % (0-5); Hematocrit 36.1 % (37-47); Hemoglobin 11.8 g/dl (12.0-15.0); Lymphocyte # 2.55 X10^3/ul (4.0); Lymphocyte % 24.5 % (19-41); Mean Corp Hgb Conc 32.7 g/gl (32-36); Mean Corpuscular Hgb 32.6 pg (27.0-32.0); Mean Corpuscular Volume 99.7 fL (81-99); Mean Platelet Vol. 11.9 fl (6.2-12.0); Monocyte# 0.76 X10^3/uL; Monocyte% 7.3 % (0-10); Neutrophil # 6.78 X10^3/uL (2.7-7.7); Platelet Count 231 K/mm3 (150-450); RBC Distribution Width CV 14.6 % (11.6-14.6); RBC Distribution Width SD 52.1 fl (35.1-43.9); Red Blood Count 3.62 M/mm3 (4.2-5.4); White Blood Count 10.4 K/mm3 (4.4-11.0)
[2017-09-17 13:03] LABS: POSITIVE COUNT NO; POSITIVE DIFFERENTIAL NO; POSITIVE MORPHOLOGY NO
[2017-09-17 13:15] LABS: Anion Gap 4 (5-15); BUN 27 mg/dL (7-18); BUN/Creat Ratio 22.3 RATIO (10-20); Calcium,Total 8.9 mg/dL (8.5-10.1); Chloride 110 mmol/L (98-107); Creatinine, Serum 1.21 mg/dL (0.55-1.02); EST Glomerular Filtration Rate 47 mL/min (>60); Est Glom Filt Rate - Afr Amer 57 mL/min (>60); Estimated Creatinine Clearance 38.43 ml/min; Glucose 111 mg/dL (74-106); Potassium 3.6 mmol/L (3.5-5.1); Sodium Level 143 mmol/L (136-145)
[2017-09-17 13:55] LABS: Bacteria 0 SEEN /hpf (None Seen); Mucous, Urine 0 SEEN /hpf (<or=2+); Red Blood Cells-Urine 0 SEEN /hpf (0-5)
[2017-09-17 14:00] LABS: Color, Urine Amber (Yellow); Glucose, Dipstick Normal (Normal); Ketone-Dipstick 15 mg/dl (Negative); Leukocyte Esterase-Dipstick 500 /ul (Negative); Nitrite-Dipstick Negative (Negative); Occult Blood-Urine 25 /ul (Negative); Protein-Dipstick 30 mg/dl (Negative); Urine Clarity Cloudy (Clear); Urine Urobilinogen 4 mg/dl (Normal)
[2017-09-17 14:02] LABS: Urine Bilirubin Dipstick 1 mg/dL (Negative)
[2017-09-17 14:07] LABS: Squamous Epithelial Cells - UA 0-5 SEEN /hpf (5-10); White Blood Cells 0-5 SEEN /hpf (0-5)
[2017-09-17 14:08] LABS: Amorphous Sediment 4+
[2017-09-17 14:27] VITALS: BP 147/83; PULSE 70; RESP 17; O2SAT 96
--- NOTE | 2017-09-17 16:10 | ED.VISSUMM ---
- ER Visit Summary Date of Service: 09/17/17 Chief Complaint: Fall with head trauma History of Present Illness: The patient is a 67 F with past medical history of prior CVA and Parkinson's disease. Presents with family states she fell yesterday hitting her head against a cast iron bathtub. They are unsure if there is any LOC it was an unwitnessed fall. Wrist reveals she has caregivers 24 7 her is home most of the time but today was at work. With normal function intact they do not believe she is recently been ill but these [id number] states she has been sleeping more recently. There is been no fever or vomiting that were aware of. Physical Examination: Older female no acute distress. Vital signs are stable afebrile. Pulse ox 90% on room air no signs of hypoxia. HEENT exam small contusions of the forehead. No lacerations. No bruising. Neck nontender. Lungs clear to auscultation bilaterally. Heart systolic ejection murmur. Regular rhythm. Abdomen soft nontender. Pelvic girdle intact. Chest wall nontender. The fracture moving all 4 extremities. No deformities. Neurologically she does answer questions and follows limited commands. She has had a prior stroke. And has weakness on the right than the upper and lower extremity which is her baseline. He Test Results: CT of the brain showed no acute abnormality. Prior chronic changes. CBC shows white count of 10. H&H 11 point and 36 which is her baseline anemia. Chemistries are unremarkable other than a BUN of 27 creatinine 1.2. UA negative. Emergency Department Course and Treatment: Old infarct. X-rays of the chest x-ray showed cardiomegaly otherwise no acute process. Treatment Plan: Repeat exam doing well at 1608. Discussed with patient and family all test results and that she can be discharged home. Disposition: Discharge Impression: Acute fall with closed head injury. Chronic anemia Mild dehydration This note was generated with SelectMinds dictation software. It may contain incorrect words, spelling, and punctuation that were not noted in review of the chart prior to signing ED Disposition - Plan for ED Patient: Chief Complaint: Fall Referrals: Ronak Mcguire MD [Primary Care Provider] -
--- NOTE | 2017-09-17 16:13 | ED.DCSUM_ITS ---
- ER Visit Summary Date of Service: 09/17/17 Chief Complaint: Fall with head trauma History of Present Illness: The patient is a 67 F with past medical history of prior CVA and Parkinson's disease. Presents with family states she fell yesterday hitting her head against a cast iron bathtub. They are unsure if there is any LOC it was an unwitnessed fall. Wrist reveals she has caregivers 24 7 her is home most of the time but today was at work. With normal function intact they do not believe she is recently been ill but these daughter- in-law states she has been sleeping more recently. There is been no fever or vomiting that were aware of. Physical Examination: Older female no acute distress. Vital signs are stable afebrile. Pulse ox 90% on room air no signs of hypoxia. HEENT exam small contusions of the forehead. No lacerations. No bruising. Neck nontender. Lungs clear to auscultation bilaterally. Heart systolic ejection murmur. Regular rhythm. Abdomen soft nontender. Pelvic girdle intact. Chest wall nontender. The fracture moving all 4 extremities. No deformities. Neurologically she does answer questions and follows limited commands. She has had a prior stroke. And has weakness on the right than the upper and lower extremity which is her baseline. He Test Results: CT of the brain showed no acute abnormality. Prior chronic changes. CBC shows white count of 10. H&H 11 point and 36 which is her baseline anemia. Chemistries are unremarkable other than a BUN of 27 creatinine 1.2. UA negative. Emergency Department Course and Treatment: Old infarct. X-rays of the chest x- ray showed cardiomegaly otherwise no acute process. Treatment Plan: Repeat exam doing well at 1608. Discussed with patient and family all test results and that she can be discharged home. Disposition: Discharge Impression: Acute fall with closed head injury. Chronic anemia Mild dehydration This note was generated with ShoeDazzle dictation software. It may contain incorrect words, spelling, and punctuation that were not noted in review of the chart prior to signing ED Disposition - Plan for ED Patient: Chief Complaint: Fall Referrals: Ronak Mcguire MD [Primary Care Provider] -
--- NOTE | 2017-09-17 16:14 | ED.DEP ---
ED Disposition - Plan for ED Patient: Disposition: Home or Assisted Living Chief Complaint: Fall Instructions: ED Head Injury Closed Referrals: Ronak Mcguire MD [Primary Care Provider] - 3-5 Days if not improving Additional Instructions: Plenty of fluids and rest.
[2017-09-17 16:25] VITALS: BP 114/79; PULSE 62; RESP 14; O2SAT 97
== END 2017-09-17 16:26 | disposition home or self-care (01) ==
PROVIDERS: Emergency Provider Emergency Medicine; Family Provider Family Medicine; PCP Family Medicine
DX: S09.90XA Unspecified injury of head, initial encounter (principal); W22.09XA Striking against other stationary object, initial encounter; Y93.89 Activity, other specified; Y92.002 Bathroom of unspecified non-institutional (private) residence as the place of occurrence of the external cause; Y99.9 Unspecified external cause status; E86.0 Dehydration; D64.9 Anemia, unspecified; G20 Parkinson's disease; Z86.73 Personal history of transient ischemic attack (TIA), and cerebral infarction without residual deficits
CPT/HCPCS: 70450; 71045; 80048; 81001; 85025; 93005; 99285; P9612; A4216

== ENCOUNTER 2017-12-01 15:11 | Emergency (ER) | payer MEDICARE, OTHER, SELFPAY ==
[2017-12-01 15:12] VITALS: BP 159/92; PULSE 87; RESP 16; TEMP 36.8; O2SAT 95; BMI 25.5
--- NOTE | 2017-12-01 15:59 | CT_ITS ---
STUDY: CT ABDOMEN AND PELVIS WITHOUT CONTRAST REASON FOR EXAM: Female, 67 years old. Abdominal pain RADIATION DOSAGE (If Supplied By Facility): CTDIvol = ( 6.35 ) mGy, DLP = ( 309.19 ) mGycm TECHNIQUE: Transaxial images were obtained from the dome of the diaphragm to the symphysis pubis without oral contrast, and without intravenous contrast. Sagittal and coronal images were reconstructed. Individualized dose optimization techniques were used for this CT. COMPARISON: None. FINDINGS: The visualized lung bases are unremarkable. Moderate cardiomegaly. Normal liver. Normal gallbladder and extrahepatic biliary system. Spleen not identified. Normal pancreas. Normal bilateral adrenal glands. Normal right kidney. Normal left kidney. Normal visualized stomach. Normal small intestine. Normal colon. The appendix is visualized and appears normal. Normal abdominal aorta. Normal inferior vena cava. Normal retroperitoneum. Normal urinary bladder. Uterus normal. Fat-containing umbilical hernia. Schmorl's node disease and mild compression fractures superior endplates of T11 and T12. CT/Abdomen/Pelvis without Cont IMPRESSION: No acute disease. Mild compression fractures, age indeterminate. Incidental findings as above. Electronically Signed: Carter Madsen MD at 17:38 EDT , Service support ,
[2017-12-01] MEDS: Ziprasidone IM 20 MG/ML VIAL 10 MG IM (16:16)
--- NOTE | 2017-12-01 16:31 | ED.VISSUMM ---
- ER Visit Summary Date of Service: 12/01/17 Chief Complaint: Confused and agitated History of Present Illness: The patient is a [address] Ronak Mcguire and Dr. Stubbs, a neurologist at [facility]. She has a history of Parkinson's disease for the past 20 years and has developed autonomic instability with this. Family reports that over the course the past days she has been more confused, anxious, paranoid, and hostile. They saw Dr. Stubbs and had a CT, UA, and labs obtained that were unremarkable. They report that today she is even worse than she had been. Patient does admit to dysuria. She denies any fever, chest pain, cough, shortness of breath, abdominal pain, nausea/vomiting, diarrhea, headache. Physical Examination: Vitals: Stable. Afebrile. General: Well-nourished and well-developed. Head: Normocephalic atraumatic. Neck: Supple, no lymphadenopathy. No JVD. Nontender. Cardiovascular: Regular rate and rhythm. No murmurs. Respiratory: No respiratory distress. Clear to auscultation bilaterally. Abdominal: Soft, nontender, nondistended, normal bowel sounds. No guarding, rebound, or peritoneal signs. Back: Nontender. Extremities: Nontender, no edema. Skin: Normal color, no rash. Neurologic: Alert and oriented ? 1. Moves all extremities well. Psych: Agitated and paranoid. Test Results: CBC is marked for a white count 11.4, H&H of 11.5 and 35.5. BMP remarkable for a creatinine 1.08. Lactic acid is normal. UA is negative. CT flank shows no acute disease. Emergency Department Course and Treatment: Patient was given dose of Geodon IM and is rested comfortably since then. Treatment Plan: Had a prolonged discussion with the family about their wishes. They would like to keep the patient at home. They have spoken with her neurologist about placing her on Seroquel. She was discussed with Dr. Lane Simeon. She will be discharged on Seroquel 12.5 mg p.o. nightly and 12.5 mg p.o. every morning as needed agitation. Return to the emergency department for any worsening symptoms. Disposition: To home in improved and stable condition. Impression: 1. Dementia. 2. Parkinson's with agitation. This note was generated with authorGEN dictation software. It may contain incorrect words, spelling, and punctuation that were not noted in review of the chart prior to signing ED Disposition - Plan for ED Patient: Disposition: Home or Assisted Living Chief Complaint: Confusion Instructions: ED Dementia Caregiver Support Prescriptions: Quetiapine Fumarate [Seroquel] 12.5 mg PO UD PRN #30 tablet PRN Reason: Agitation Referrals: Ronak Mcguire MD [Primary Care Provider] - 1-2 Days if not improving
--- NOTE | 2017-12-01 17:00 | ED.DCSUM_ITS ---
- ER Visit Summary Date of Service: 12/01/17 Chief Complaint: Confused and agitated History of Present Illness: The patient is a [address] Ronak Mcguire and Dr. Stubbs, a neurologist at [facility]. 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 Family reports that over the course the past days she has been more confused, anxious, paranoid, and hostile. They saw Dr. Stubbs and had a CT, UA, and labs obtained that were unremarkable. They report that today she is even worse than she had been. Patient does admit to dysuria. She denies any fever, chest pain, cough, shortness of breath, abdominal pain, nausea/vomiting, diarrhea, headache. Physical Examination: Vitals: Stable. Afebrile. General: Well-nourished and well-developed. Head: Normocephalic atraumatic. Neck: Supple, no lymphadenopathy. No JVD. Nontender. Cardiovascular: Regular rate and rhythm. No murmurs. Respiratory: No respiratory distress. Clear to auscultation bilaterally. Abdominal: Soft, nontender, nondistended, normal bowel sounds. No guarding, rebound, or peritoneal signs. Back: Nontender. Extremities: Nontender, no edema. Skin: Normal color, no rash. Neurologic: Alert and oriented ? 1. Moves all extremities well. Psych: Agitated and paranoid. Test Results: CBC is marked for a white count 11.4, H&H of 11.5 and 35.5. BMP remarkable for a creatinine 1.08. Lactic acid is normal. UA is negative. CT flank shows no acute disease. Emergency Department Course and Treatment: Patient was given dose of Geodon IM and is rested comfortably since then. Treatment Plan: Had a prolonged discussion with the family about their wishes. They would like to keep the patient at home. They have spoken with her neurologist about placing her on Seroquel. She was discussed with Dr. Lane Simeon. She will be discharged on Seroquel 12.5 mg p.o. nightly and 12.5 mg p.o. every morning as needed agitation. Return to the emergency department for any worsening symptoms. Disposition: To home in improved and stable condition. Impression: 1. Dementia. 2. Parkinson's with agitation. This note was generated with [employer] dictation software. It may contain incorrect words, spelling, and punctuation that were not noted in review of the chart prior to signing ED Disposition - Plan for ED Patient: Disposition: Home or Assisted Living Chief Complaint: Confusion Instructions: ED Dementia Caregiver Support Prescriptions: Quetiapine Fumarate [Seroquel] 12.5 mg PO UD PRN #30 tablet PRN Reason: Agitation Referrals: Ronak Mcguire MD [Primary Care Provider] - 1-2 Days if not improving
[2017-12-01 17:05] LABS: Absolute Lymphocyte Count 3.89 X10^3/ul (0.83-4.51); Absolute Neutrophil Count 6.2 X10^3/uL (2.0-7.7); Basophil# 0.06 X10^3/uL; Basophil% 0.5 % (0-1); Eosinophil# 0.34 X10^3/uL; Hematocrit 35.5 % (37-47); Hemoglobin 11.5 g/dl (12.0-15.0); Lymphocyte # 3.89 X10^3/ul (4.0); Lymphocyte % 34.1 % (19-41); Mean Corp Hgb Conc 32.4 g/gl (32-36); Mean Corpuscular Hgb 31.6 pg (27.0-32.0); Mean Corpuscular Volume 97.5 fL (81-99); Mean Platelet Vol. 12.5 fl (6.2-12.0); Monocyte# 0.91 X10^3/uL; Neutrophil % 54.3 % (47-70); Platelet Count 231 K/mm3 (150-450); RBC Distribution Width CV 13.5 % (11.6-14.6); RBC Distribution Width SD 48.3 fl (35.1-43.9); Red Blood Count 3.64 M/mm3 (4.2-5.4); White Blood Count 11.4 K/mm3 (4.4-11.0)
[2017-12-01 17:05] LABS: Bacteria 0 SEEN /hpf (None Seen); Red Blood Cells-Urine 0 SEEN /hpf (0-5); Squamous Epithelial Cells - UA 0 SEEN /hpf (5-10)
[2017-12-01 17:07] LABS: POSITIVE COUNT NO; POSITIVE DIFFERENTIAL NO; POSITIVE MORPHOLOGY NO
[2017-12-01 17:20] LABS: Color, Urine Amber (Yellow); Glucose, Dipstick Normal (Normal); Ketone-Dipstick 15 mg/dl (Negative); Leukocyte Esterase-Dipstick 25 /ul (Negative); Nitrite-Dipstick Negative (Negative); Occult Blood-Urine 25 /ul (Negative); Protein-Dipstick 15 mg/dl (Negative); Urine Bilirubin Dipstick Negative (Negative); Urine Clarity Clear (Clear); Urine Urobilinogen Normal (Normal)
[2017-12-01 17:32] VITALS: BP 151/77; PULSE 97; RESP 21; O2SAT 95
[2017-12-01 17:33] LABS: Anion Gap 10 (5-15); BUN 18 mg/dL (7-18); BUN/Creat Ratio 16.7 RATIO (10-20); Calcium,Total 8.7 mg/dL (8.5-10.1); Chloride 106 mmol/L (98-107); Creatinine, Serum 1.08 mg/dL (0.55-1.02); EST Glomerular Filtration Rate 54 mL/min (>60); Est Glom Filt Rate - Afr Amer 65 mL/min (>60); Estimated Creatinine Clearance 43.05 ml/min; Glucose 94 mg/dL (74-106); Potassium 3.5 mmol/L (3.5-5.1); Sodium Level 144 mmol/L (136-145)
[2017-12-01 17:34] LABS: Mucous, Urine 2+ /hpf (<or=2+)
[2017-12-01 17:35] LABS: White Blood Cells 0-5 SEEN /hpf (0-5)
[2017-12-01 17:36] LABS: Lactic Acid 1.8 mmol/L (0.4-2.0)
[2017-12-01 19:29] VITALS: BP 140/105; PULSE 92; RESP 17; O2SAT 96
[2017-12-01 20:09] VITALS: BP 113/78; PULSE 93; RESP 17; O2SAT 96
[2017-12-01] MEDS: QUEtiapine 25 MG Tablet PO (20:11)
== END 2017-12-01 20:28 | disposition home or self-care (01) ==
PROVIDERS: Emergency Provider Emergency Medicine; Family Provider Family Medicine; PCP Family Medicine
DX: F03.90 Unspecified dementia, unspecified severity, without behavioral disturbance, psychotic disturbance, mood disturbance, and anxiety (principal); R45.1 Restlessness and agitation; G20 Parkinson's disease; R30.0 Dysuria; Z86.73 Personal history of transient ischemic attack (TIA), and cerebral infarction without residual deficits
CPT/HCPCS: 74176; 80048; 81001; 83605; 85025; 87040; 87086; 87088; 99285; J7030; J7040; P9612; A4216; J3486